=== PATIENT | male | born 1945 | race Caucasian/White ===

== ENCOUNTER 2018-06-29 09:55 | Inpatient (IN) ==
[2018-06-29] MEDS ORDERED: FUROSEMIDE 100 MG/10 ML VIAL IV STA (10:26)
[2018-06-29] MEDS ORDERED: ONDANSETRON 4 MG/2 ML VIAL IV STA (10:26)
[2018-06-29] MEDS ORDERED: MORPHINE 4 MG/1 ML VIAL IV STA (10:26)
[2018-06-29] MEDS ORDERED: FUROSEMIDE 20 MG/2 ML VIAL ONE (10:36)
[2018-06-29] MEDS ORDERED: FUROSEMIDE 40 MG/4 ML VIAL ONE (10:36)
[2018-06-29 11:31] LABS: Basophils # 0.1 10*3/uL (0.0-0.2); Basophils % 0.5 % (0.0-0.8); Eosinophils % 0.4 % (0.00-10.9); Hematocrit 44.3 VOL% (42.0-52.0); Hemoglobin 14.4 GM/DL (14.0-18.0); Immature Granulocytes % 0.4 %; Immature Granulocytes Absolute 0.05 #; Lymphocytes # 0.9 10*3/uL (1.4-4.0); Lymphocytes % 8.4 % (21.2-54.2); Mean Corpuscular HGB Conc 32.5 GM/DL (32-36); Mean Corpuscular Hemoglobin 30 PG (27-34); Mean Corpuscular Volume 92.9 FL (87-102); Mean Platelet Volume 11.5 FL (9.6-12.0); Monocytes # 0.9 10*3/uL (0.11-0.8); Monocytes % 8.3 % (1.7-12.7); Neutrophils # 9.1 10*3/uL (1.4-7.4); Platelet Count 231 T/CUMM (130-400); Red Blood Count 4.77 MC/CUMM (3.8-5.5); Red Cell Distribution Width 15.4 % (9.3-17.3); White Blood Count 11.2 T/CUMM (4-12)
[2018-06-29 11:52] LABS: Albumin 3.5 G/DL (3.4-5.0); Bilirubin,Total 1.5 MG/DL (0.2-1.0); Calcium 9.9 MG/DL (8.5-10.1); Osmolality,Calculated 276.8 MOS/KG (273-304); Potassium 4.1 MMOL/L (3.5-5.1); Total Protein 7.3 G/DL (6.4-8.3)
[2018-06-29 11:54] LABS: INR 1.3; PT Patient Result 13.2 SECS
[2018-06-29] MEDS ORDERED: ALBUTEROL 2.5 MG/3 ML NEB RESP TX STA (12:27)
[2018-06-29] MEDS ORDERED: NITROGLYCERIN SL 0.4 MG TABLET SL PRN (16:20)
[2018-06-29] MEDS ORDERED: ONDANSETRON 4 MG/2 ML VIAL IV PRN (16:25)
[2018-06-29] MEDS ORDERED: ACETAMINOPHEN 325 MG TABLET PO PRN (16:25)
[2018-06-29] MEDS: FORMOTEROL 20 MCG/2 ML NEB RESP TX SCH (19:38)
[2018-06-29] MEDS ORDERED: FUROSEMIDE 40 MG TABLET PO SCH (21:00)
[2018-06-29] MEDS: MONTELUKAST 10 MG TABLET PO SCH (21:30)
[2018-06-29] MEDS: METOPROLOL TARTRATE 25 MG TABLET PO SCH (21:30)
[2018-06-29] MEDS: APIXABAN 5 MG TABLET PO SCH (21:30)
[2018-06-29] MEDS ORDERED: ACETAMINOPHEN/diphenhydrAMINE 500-25 MG TABLET PO ONE (21:46)
[2018-06-30] MEDS ORDERED: ALBUTEROL 2.5 MG/3 ML NEB RESP TX SCH (07:00)
[2018-06-30 07:05] LABS: Basophils # 0.1 10*3/uL (0.0-0.2); Basophils % 0.7 % (0.0-0.8); Eosinophils # 0.1 10*3/uL (0.0-0.87); Hematocrit 37.8 VOL% (42.0-52.0); Hemoglobin 12.3 GM/DL (14.0-18.0); Immature Granulocytes % 0.2 %; Immature Granulocytes Absolute 0.02 #; Lymphocytes # 1.2 10*3/uL (1.4-4.0); Lymphocytes % 13.3 % (21.2-54.2); Mean Corpuscular HGB Conc 32.5 GM/DL (32-36); Mean Corpuscular Hemoglobin 30 PG (27-34); Mean Corpuscular Volume 92.4 FL (87-102); Mean Platelet Volume 12.4 FL (9.6-12.0); Monocytes # 0.9 10*3/uL (0.11-0.8); Monocytes % 10.1 % (1.7-12.7); Neutrophils # 6.8 10*3/uL (1.4-7.4); Neutrophils % 74.7 % (38.7-73.9); Platelet Count 200 T/CUMM (130-400); Red Blood Count 4.09 MC/CUMM (3.8-5.5); Red Cell Distribution Width 15.4 % (9.3-17.3); White Blood Count 9.1 T/CUMM (4-12)
[2018-06-30 07:18] LABS: Osmolality,Calculated 278.7 MOS/KG (273-304); Potassium 3.1 MMOL/L (3.5-5.1)
[2018-06-30] MEDS: BUDESONIDE 0.5 MG/2 ML NEB RESP TX SCH (07:26)
[2018-06-30] MEDS: FORMOTEROL 20 MCG/2 ML NEB RESP TX SCH ×2 (07:26→19:00)
[2018-06-30] MEDS: METOPROLOL TARTRATE 25 MG TABLET PO SCH ×2 (08:33→20:10)
[2018-06-30] MEDS: PANTOPRAZOLE 40 MG TABLET PO SCH (08:35)
[2018-06-30] MEDS: APIXABAN 5 MG TABLET PO SCH ×2 (08:35→20:10)
[2018-06-30] MEDS: LOSARTAN 50 MG TABLET PO SCH (08:35)
[2018-06-30] MEDS: SPIRONOLACTONE 25 MG TABLET PO SCH (08:35)
[2018-06-30] MEDS: ASPIRIN EC 81 MG TABLET PO SCH (08:35)
[2018-06-30] MEDS: FUROSEMIDE 40 MG/4 ML VIAL IV SCH ×2 (08:36→15:25)
[2018-06-30] MEDS: POTASSIUM CHLORIDE 20 MEQ TABLET PO PRN ×4 (11:02→18:41)
[2018-06-30] MEDS ORDERED: AZITHROMYCIN 250 MG TABLET PO ONE (12:54)
[2018-06-30] MEDS ORDERED: ASPIRIN CHEW 81 MG TABLET PO ONE ×3 (13:53→13:55)
[2018-06-30] MEDS ORDERED: ASPIRIN 325 MG TABLET ONE (13:53)
[2018-06-30] MEDS ORDERED: METOPROLOL TARTRATE 5 MG/5 ML VIAL IV PRN (14:04)
[2018-06-30] MEDS ORDERED: BISACODYL 10 MG SUPP RECTAL ONE (14:21)
[2018-06-30] MEDS ORDERED: ALBUTEROL 2.5 MG/3 ML NEB RESP TX PRN (16:41)
[2018-06-30] MEDS ORDERED: traZODone 50 MG TABLET PO PRN (16:41)
[2018-06-30] MEDS: ALBUTEROL/IPRATROPIUM 3 ML NEB RESP TX SCH ×2 (18:52→18:54)
[2018-06-30] MEDS: MONTELUKAST 10 MG TABLET PO SCH (20:10)
[2018-06-30] MEDS: AMOXICILLIN/CLAV 875 MG TABLET PO SCH (20:10)
[2018-07-01 06:02] LABS: Basophils # 0.1 10*3/uL (0.0-0.2); Basophils % 0.7 % (0.0-0.8); Eosinophils # 0.1 10*3/uL (0.0-0.87); Eosinophils % 1.1 % (0.00-10.9); Hematocrit 42.1 VOL% (42.0-52.0); Hemoglobin 13.1 GM/DL (14.0-18.0); Immature Granulocytes % 0.3 %; Immature Granulocytes Absolute 0.03 #; Lymphocytes # 1.4 10*3/uL (1.4-4.0); Lymphocytes % 15.7 % (21.2-54.2); Mean Corpuscular HGB Conc 31.1 GM/DL (32-36); Mean Corpuscular Hemoglobin 30 PG (27-34); Mean Corpuscular Volume 96.6 FL (87-102); Mean Platelet Volume 12.2 FL (9.6-12.0); Monocytes # 1.1 10*3/uL (0.11-0.8); Monocytes % 12.1 % (1.7-12.7); Neutrophils # 6.2 10*3/uL (1.4-7.4); Neutrophils % 70.1 % (38.7-73.9); Platelet Count 196 T/CUMM (130-400); Red Blood Count 4.36 MC/CUMM (3.8-5.5); Red Cell Distribution Width 15.4 % (9.3-17.3); White Blood Count 8.9 T/CUMM (4-12)
[2018-07-01 06:26] LABS: Calcium 9.1 MG/DL (8.5-10.1); Osmolality,Calculated 280.5 MOS/KG (273-304); Potassium 4.4 MMOL/L (3.5-5.1)
[2018-07-01] MEDS: ALBUTEROL/IPRATROPIUM 3 ML NEB RESP TX SCH ×3 (07:57→13:50)
[2018-07-01] MEDS: BUDESONIDE 0.5 MG/2 ML NEB RESP TX SCH (07:57)
[2018-07-01] MEDS: FORMOTEROL 20 MCG/2 ML NEB RESP TX SCH (08:07)
[2018-07-01] MEDS: SPIRONOLACTONE 25 MG TABLET PO SCH (08:50)
[2018-07-01] MEDS: AMOXICILLIN/CLAV 875 MG TABLET PO SCH (08:50)
[2018-07-01] MEDS: ASPIRIN EC 81 MG TABLET PO SCH (08:52)
[2018-07-01] MEDS: PANTOPRAZOLE 40 MG TABLET PO SCH (08:57)
[2018-07-01] MEDS: LOSARTAN 50 MG TABLET PO SCH (08:57)
[2018-07-01] MEDS: APIXABAN 5 MG TABLET PO SCH (08:58)
[2018-07-01] MEDS: METOPROLOL TARTRATE 25 MG TABLET PO SCH (08:58)
[2018-07-01] MEDS ORDERED: FUROSEMIDE 40 MG TABLET PO SCH (09:00)
[2018-07-01] MEDS ORDERED: AZITHROMYCIN 250 MG TABLET PO SCH (09:00)
[2018-07-01 13:15] VITALS: BP 110/72
== END 2018-07-01 15:20 | disposition home or self-care (01) | DRG 292 ==
LOC: EDBD → EDUNIT# → N.ED 09:55 → N.EDINP 16:25 → N.2E 17:13
PROVIDERS: ADMIT Internal Medicine; ATTEND Internal Medicine

== ENCOUNTER 2018-08-10 09:47 | Inpatient (IN) ==
[2018-08-10] MEDS ORDERED: ONDANSETRON 4 MG/2 ML VIAL IV STA (10:20)
[2018-08-10] MEDS ORDERED: SODIUM CHLORIDE 0.9% 1,000 ML IV STA (10:20)
[2018-08-10 10:40] LABS: Basophils # 0.1 10*3/uL (0.0-0.2); Basophils % 0.7 % (0.0-0.8); Eosinophils % 0.2 % (0.00-10.9); Hematocrit 41.4 VOL% (42.0-52.0); Hemoglobin 13.3 GM/DL (14.0-18.0); Immature Granulocytes % 0.2 %; Immature Granulocytes Absolute 0.02 #; Lymphocytes # 0.9 10*3/uL (1.4-4.0); Lymphocytes % 10.6 % (21.2-54.2); Mean Corpuscular HGB Conc 32.1 GM/DL (32-36); Mean Corpuscular Hemoglobin 29 PG (27-34); Mean Corpuscular Volume 88.7 FL (87-102); Mean Platelet Volume 10.5 FL (9.6-12.0); Monocytes # 0.9 10*3/uL (0.11-0.8); Monocytes % 10.3 % (1.7-12.7); Neutrophils # 6.9 10*3/uL (1.4-7.4); Platelet Count 328 T/CUMM (130-400); Red Blood Count 4.67 MC/CUMM (3.8-5.5); Red Cell Distribution Width 15.4 % (9.3-17.3); White Blood Count 8.9 T/CUMM (4-12)
[2018-08-10 10:54] LABS: Alanine Aminotransferase 79 U/L (16-61); Albumin 3.2 G/DL (3.4-5.0); Alkaline Phosphatase 94 U/L (45-117); Aspartate Amino Transferase 129 U/L (0-37); Blood Urea Nitrogen 37 MG/DL (7-18); Calcium 9.2 MG/DL (8.5-10.1); Glucose 93 MG/DL (74-106); Sodium 137 MMOL/L (136-145); Total Protein 6.2 G/DL (6.4-8.3)
[2018-08-10 10:55] LABS: Osmolality,Calculated 281.8 MOS/KG (273-304); Potassium 3.6 MMOL/L (3.5-5.1)
[2018-08-10 10:56] LABS: Lactic Acid 2.1 MMOL/L (0.4-2.0)
[2018-08-10 11:20] LABS: Apearance,Urine Slightly Hazy (Clear); Bacteria,Urine Occasional /HPF (Few); Bilirubin,Urine Negative (Negative); Blood, Urine Small mg/dL (Negative); Glucose,Urine (UA) Negative (Negative); Granular Casts,Urine 1 /LPF (0-1); Hyaline Casts,Urine 54 /LPF (0-3); Ketones,Urine 5 mg/dL (Negative); Mucus,Urine Occasional /LPF (Occasional); Nitrite,Urine Negative (Negative); Protein,Urine 100 MG/DL; RBC,Urine 9 /HPF (0-4); Squamous Epithelial Cell,Urine Occasional /HPF (0-10); Urine Color Amber (Yellow); Urine Specific Gravity 1.019 (1.001-1.035); WBC,Urine 4 /HPF (0-6)
[2018-08-10] MEDS ORDERED: ACETAMINOPHEN 325 MG TABLET PO PRN (13:50)
[2018-08-10] MEDS: DOBUTamine 500 MG/250 ML PREMIX IV SCH (15:26)
[2018-08-10] MEDS ORDERED: ALBUTEROL 2.5 MG/3 ML NEB RESP TX STA (15:28)
[2018-08-10 15:47] LABS: Bilirubin,Total 1.2 MG/DL (0.2-1.0); Calcium 8.3 MG/DL (8.5-10.1); Osmolality,Calculated 281.7 MOS/KG (273-304); Potassium 3.3 MMOL/L (3.5-5.1); Total Protein 6.4 G/DL (6.4-8.3)
[2018-08-10] MEDS: POTASSIUM CHLORIDE 20 MEQ TABLET PO PRN ×3 (18:41→22:56)
[2018-08-10] MEDS: ALBUTEROL 2.5 MG/3 ML NEB RESP TX PRN (19:28)
[2018-08-10] MEDS ORDERED: AMIODARONE INJ 150 MG in DEXTROSE 5% 100 ML IV ONE (19:28)
[2018-08-10] MEDS ORDERED: AMIODARONE INJ 450 MG in DEXTROSE 5% 241 ML IV SCH (19:30)
[2018-08-10] MEDS: ENOXAPARIN 30 MG/0.3 ML SYRINGE SUBCUT SCH (20:23)
[2018-08-11] MEDS: ALBUTEROL 2.5 MG/3 ML NEB RESP TX PRN ×2 (01:48→08:04)
[2018-08-11] MEDS: ONDANSETRON 4 MG/2 ML VIAL IV PRN ×2 (01:54→11:02)
[2018-08-11] MEDS: AMIODARONE INJ 450 MG in DEXTROSE 5% 241 ML IV SCH ×2 (01:55→17:00)
[2018-08-11 02:46] LABS: Basophils # 0.1 10*3/uL (0.0-0.2); Basophils % 0.6 % (0.0-0.8); Eosinophils # 0.1 10*3/uL (0.0-0.87); Eosinophils % 0.5 % (0.00-10.9); Hematocrit 37.2 VOL% (42.0-52.0); Immature Granulocytes % 0.3 %; Immature Granulocytes Absolute 0.03 #; Lymphocytes # 1.2 10*3/uL (1.4-4.0); Mean Corpuscular HGB Conc 32.3 GM/DL (32-36); Mean Corpuscular Hemoglobin 28 PG (27-34); Mean Corpuscular Volume 87.1 FL (87-102); Monocytes # 1.1 10*3/uL (0.11-0.8); Monocytes % 11.2 % (1.7-12.7); Neutrophils # 7.3 10*3/uL (1.4-7.4); Neutrophils % 75.4 % (38.7-73.9); Platelet Count 306 T/CUMM (130-400); Red Blood Count 4.27 MC/CUMM (3.8-5.5); Red Cell Distribution Width 15.7 % (9.3-17.3); White Blood Count 9.6 T/CUMM (4-12)
[2018-08-11 03:23] LABS: Calcium 8.6 MG/DL (8.5-10.1); Osmolality,Calculated 281.8 MOS/KG (273-304); Potassium 3.5 MMOL/L (3.5-5.1)
[2018-08-11] MEDS: POTASSIUM CHLORIDE RIDER 10 MEQ in PREMIX 1 EACH IV PRN ×3 (06:42→08:42)
[2018-08-11 09:12] LABS: ABG Base Excess -0.4 MMOL/L (-2.5-2.5); ABG Oxygen Saturation 96.2 % (95-100); ABG PCO2 43.6 MM HG (35-48); ABG PH 7.368 (7.35-7.45); ABG PO2 85.8 MM HG (80-95); ABG TCO2 22.4 MMOL/L (23-27)
[2018-08-11] MEDS: ASPIRIN EC 81 MG TABLET PO SCH (10:33)
[2018-08-11] MEDS: METOPROLOL TARTRATE 25 MG TABLET PO SCH ×2 (10:33→20:14)
[2018-08-11 13:10] LABS: Apearance,Urine CLEAR (Clear); Bilirubin,Urine Negative (Negative); Blood, Urine Large mg/dL (Negative); Glucose,Urine (UA) Negative (Negative); Hyaline Casts,Urine 3 /LPF (0-3); Ketones,Urine 5 mg/dL (Negative); Mucus,Urine Occasional /LPF (Occasional); Nitrite,Urine Negative (Negative); Protein,Urine 30 MG/DL; RBC,Urine 166 /HPF (0-4); Squamous Epithelial Cell,Urine Occasional /HPF (0-10); Urine Color Yellow (Yellow); Urine Specific Gravity 1.019 (1.001-1.035); WBC,Urine 15 /HPF (0-6)
[2018-08-11] MEDS: ALBUTEROL/IPRATROPIUM 3 ML NEB RESP TX SCH ×3 (14:00→18:20)
[2018-08-11] MEDS: BUDESONIDE 0.5 MG/2 ML NEB RESP TX SCH ×2 (14:00→18:20)
[2018-08-11] MEDS ORDERED: ALBUTEROL/IPRATROPIUM 3 ML NEB RESP TX PRN (14:43)
[2018-08-11] MEDS: DOBUTamine 500 MG/250 ML PREMIX IV SCH ×2 (16:25→21:14)
[2018-08-11] MEDS: THEOPHYLLINE ER (24 HR) 200 MG CAPSULE PO SCH (18:25)
[2018-08-11] MEDS: MONTELUKAST 10 MG TABLET PO SCH (20:14)
[2018-08-11] MEDS: ENOXAPARIN 30 MG/0.3 ML SYRINGE SUBCUT SCH (20:14)
[2018-08-11 20:46] LABS: ABG Base Excess -1.9 MMOL/L (-2.5-2.5); ABG HCO3 22.8 MMOL/L (20-26); ABG Oxygen Saturation 94.8 % (95-100); ABG PCO2 41.2 MM HG (35-48); ABG PH 7.363 (7.35-7.45); ABG PO2 77.4 MM HG (80-95); ABG TCO2 20.5 MMOL/L (23-27); Allen Test Positive
[2018-08-11] MEDS ORDERED: AMIODARONE INJ 150 MG in DEXTROSE 5% 100 ML IV ONE (21:03)
[2018-08-11] MEDS ORDERED: AMIODARONE 150 MG/3 ML VIAL ONE (21:04)
[2018-08-11] MEDS ORDERED: AMIODARONE 450 MG/9 ML VIAL IV ONE (21:05)
[2018-08-11] MEDS ORDERED: AMIODARONE INJ 450 MG in DEXTROSE 5% 241 ML IV SCH (21:30)
[2018-08-11] MEDS ORDERED: SODIUM CHLORIDE 0.9% 500 ML IV ONE (21:40)
[2018-08-11 22:43] LABS: ABG Base Excess -5.8 MMOL/L (-2.5-2.5); ABG HCO3 21.6 MMOL/L (20-26); ABG Oxygen Saturation 92.8 % (95-100); ABG PCO2 49.7 MM HG (35-48); ABG PH 7.255 (7.35-7.45); ABG PO2 80.9 MM HG (80-95); ABG TCO2 23.1 MMOL/L (23-27)
[2018-08-11] MEDS ORDERED: LORazepam 2 MG/1 ML VIAL IV ONE (23:05)
[2018-08-11 23:07] LABS: Calcium 8.4 MG/DL (8.5-10.1); Osmolality,Calculated 280.2 MOS/KG (273-304); Potassium 4.4 MMOL/L (3.5-5.1)
[2018-08-11] MEDS ORDERED: MORPHINE 4 MG/1 ML VIAL IV PRN (23:11)
[2018-08-11] MEDS: PHENYLEPHRINE DRIP 40 MG/250 ML PREMIX IV PRN (23:18)
[2018-08-12] MEDS ORDERED: SODIUM BICARBONATE 50 MEQ/50 ML SYRINGE IV ONE (00:56)
[2018-08-12] MEDS ORDERED: DOPamine 800 MG/250 ML PREMIX IV PRN (00:56)
[2018-08-12] MEDS ORDERED: SODIUM CHLORIDE 0.9% 500 ML IV ONE (00:56)
[2018-08-12] MEDS: ALBUTEROL/IPRATROPIUM 3 ML NEB RESP TX SCH ×4 (01:15→19:02)
[2018-08-12 01:20] LABS: ABG Base Excess 1.8 MMOL/L (-2.5-2.5); ABG HCO3 28.7 MMOL/L (20-26); ABG Oxygen Saturation 97.8 % (95-100); ABG PCO2 55.1 MM HG (35-48); ABG PH 7.334 (7.35-7.45); ABG TCO2 30.4 MMOL/L (23-27)
[2018-08-12] MEDS: PHENYLEPHRINE DRIP 40 MG/250 ML PREMIX IV PRN ×9 (02:16→20:46)
[2018-08-12] MEDS: AMIODARONE INJ 450 MG in DEXTROSE 5% 241 ML IV SCH ×2 (03:00→19:31)
[2018-08-12] MEDS ORDERED: LORazepam 2 MG/1 ML VIAL IV ONE (03:21)
[2018-08-12] MEDS ORDERED: NOREPINEPHRINE 4 MG/4 ML VIAL IV ONE (03:43)
[2018-08-12 04:06] LABS: Albumin 2.9 G/DL (3.4-5.0); Calcium 8.4 MG/DL (8.5-10.1); Osmolality,Calculated 280.8 MOS/KG (273-304); Potassium 4.3 MMOL/L (3.5-5.1)
[2018-08-12] MEDS: NOREPINEPHRINE 8 MG in SODIUM CHLORIDE 0.9% 242 ML IV PRN ×2 (04:08→10:10)
[2018-08-12] MEDS: BUDESONIDE 0.5 MG/2 ML NEB RESP TX SCH ×2 (07:23→19:02)
[2018-08-12] MEDS ORDERED: FUROSEMIDE 40 MG/4 ML VIAL IV ONE (07:56)
[2018-08-12] MEDS ORDERED: FUROSEMIDE 40 MG/4 ML VIAL ONE (07:58)
[2018-08-12 08:27] LABS: Basophils % 0.1 % (0.0-0.8); Hematocrit 45.1 VOL% (42.0-52.0); Hemoglobin 13.9 GM/DL (14.0-18.0); Immature Granulocytes % 0.4 %; Immature Granulocytes Absolute 0.06 #; Lymphocytes # 0.3 10*3/uL (1.4-4.0); Lymphocytes % 2.2 % (21.2-54.2); Mean Corpuscular HGB Conc 30.8 GM/DL (32-36); Mean Corpuscular Hemoglobin 28 PG (27-34); Mean Corpuscular Volume 90.9 FL (87-102); Mean Platelet Volume 11.7 FL (9.6-12.0); Monocytes # 1.2 10*3/uL (0.11-0.8); Monocytes % 7.9 % (1.7-12.7); Neutrophils # 13.2 10*3/uL (1.4-7.4); Neutrophils % 89.4 % (38.7-73.9); Platelet Count 277 T/CUMM (130-400); Red Blood Count 4.96 MC/CUMM (3.8-5.5); Red Cell Distribution Width 15.8 % (9.3-17.3); White Blood Count 14.8 T/CUMM (4-12)
[2018-08-12 08:49] LABS: Eosinophils 1 % (0-10); Hypochromasia 1+; Lymphocytes 2 % (20-55); Nucleated Red Blood Cells 1 (0-5); Platelet Estimate Adequate; Segmented Neutrophils 88 % (50-85); Total Cells Counted 100
[2018-08-12] MEDS: METOPROLOL TARTRATE 25 MG TABLET PO SCH ×2 (09:00→20:41)
[2018-08-12] MEDS: ASPIRIN EC 81 MG TABLET PO SCH (09:00)
[2018-08-12] MEDS ORDERED: SUCCINYLCHOLINE 200 MG/10 ML VIAL ONE (09:15)
[2018-08-12] MEDS ORDERED: ETOMIDATE 20 MG/10 ML VIAL IV ONE ×2 (09:15→09:31)
[2018-08-12] MEDS ORDERED: SUCCINYLCHOLINE 200 MG/10 ML VIAL IV ONE (09:29)
[2018-08-12] MEDS ORDERED: PROPOFOL 1,000 MG/100 ML BOTTLE IV ONE (09:55)
[2018-08-12] MEDS: PIPERACILLIN/TAZOBACTAM 3,375 MG in SODIUM CHLORIDE 0.9% 100 ML IV SCH ×2 (10:14→17:00)
[2018-08-12] MEDS: PROPOFOL 1,000 MG/100 ML BOTTLE IV SCH ×2 (10:15→21:39)
[2018-08-12 10:20] LABS: ABG Base Excess -5.7 MMOL/L (-2.5-2.5); ABG HCO3 19.7 MMOL/L (20-26); ABG Oxygen Saturation 93.2 % (95-100); ABG PCO2 53.9 MM HG (35-48); ABG PH 7.233 (7.35-7.45); ABG PO2 78.1 MM HG (80-95); ABG TCO2 20.3 MMOL/L (23-27)
[2018-08-12 11:20] LABS: ABG HCO3 21.1 MMOL/L (20-26); ABG Oxygen Saturation 99.7 % (95-100); ABG PCO2 45.1 MM HG (35-48); ABG PH 7.306 (7.35-7.45); ABG TCO2 19.9 MMOL/L (23-27)
[2018-08-12] MEDS: VANCOMYCIN INJ 1,000 MG in SODIUM CHLORIDE 0.9% 250 ML IV SCH (13:10)
[2018-08-12] MEDS: NOREPINEPHRINE 16 MG in SODIUM CHLORIDE 0.9% 234 ML IV PRN ×2 (15:33→20:15)
[2018-08-12] MEDS ORDERED: METOPROLOL TARTRATE 5 MG/5 ML VIAL IV ONE (15:48)
[2018-08-12] MEDS: THEOPHYLLINE ER (24 HR) 200 MG CAPSULE PO SCH (17:00)
[2018-08-12] MEDS: DOBUTamine 500 MG/250 ML PREMIX IV SCH (18:31)
[2018-08-12] MEDS: MONTELUKAST 10 MG TABLET PO SCH (20:40)
[2018-08-12] MEDS: ENOXAPARIN 30 MG/0.3 ML SYRINGE SUBCUT SCH (20:40)
[2018-08-12] MEDS: PHENYLEPHRINE INJ 160 MG in SODIUM CHLORIDE 0.9% 234 ML IV PRN (22:42)
[2018-08-13] MEDS: ALBUTEROL/IPRATROPIUM 3 ML NEB RESP TX SCH ×4 (00:42→20:28)
[2018-08-13] MEDS: PIPERACILLIN/TAZOBACTAM 3,375 MG in SODIUM CHLORIDE 0.9% 100 ML IV SCH ×3 (01:39→17:18)
[2018-08-13] MEDS: AMIODARONE INJ 450 MG in DEXTROSE 5% 241 ML IV SCH ×2 (01:41→17:10)
[2018-08-13 02:57] LABS: ABG Base Excess -4.5 MMOL/L (-2.5-2.5); ABG HCO3 20.7 MMOL/L (20-26); ABG Oxygen Saturation 96.8 % (95-100); ABG PCO2 39.6 MM HG (35-48); ABG PH 7.335 (7.35-7.45); ABG PO2 95.3 MM HG (80-95); ABG TCO2 18.5 MMOL/L (23-27); Allen Test Positive; Pt O2 Delivery Device Ventilator
[2018-08-13] MEDS: NOREPINEPHRINE 16 MG in SODIUM CHLORIDE 0.9% 234 ML IV PRN ×4 (04:37→22:00)
[2018-08-13 04:49] LABS: Basophils % 0.2 % (0.0-0.8); Eosinophils % 0.1 % (0.00-10.9); Hematocrit 41.6 VOL% (42.0-52.0); Hemoglobin 13.1 GM/DL (14.0-18.0); Immature Granulocytes % 0.6 %; Immature Granulocytes Absolute 0.08 #; Lymphocytes # 0.6 10*3/uL (1.4-4.0); Lymphocytes % 4.2 % (21.2-54.2); Mean Corpuscular HGB Conc 31.5 GM/DL (32-36); Mean Corpuscular Hemoglobin 29 PG (27-34); Mean Corpuscular Volume 90.6 FL (87-102); Mean Platelet Volume 10.7 FL (9.6-12.0); Monocytes # 1.5 10*3/uL (0.11-0.8); Monocytes % 10.7 % (1.7-12.7); Neutrophils % 84.2 % (38.7-73.9); Platelet Count 266 T/CUMM (130-400); Red Blood Count 4.59 MC/CUMM (3.8-5.5); Red Cell Distribution Width 15.9 % (9.3-17.3); White Blood Count 14.3 T/CUMM (4-12)
[2018-08-13 05:10] LABS: Burr Cells Slight; Hypochromasia 1+; Lymphocytes 8 % (20-55); Ovalocytes Slight; Platelet Estimate Adequate; Segmented Neutrophils 85 % (50-85); Total Cells Counted 100
[2018-08-13 05:14] LABS: Calcium 7.8 MG/DL (8.5-10.1); Osmolality,Calculated 285.5 MOS/KG (273-304); Potassium 4.1 MMOL/L (3.5-5.1)
[2018-08-13] MEDS: PHENYLEPHRINE DRIP 40 MG/250 ML PREMIX IV PRN ×2 (05:40→08:43)
[2018-08-13] MEDS: NOREPINEPHRINE 8 MG in SODIUM CHLORIDE 0.9% 242 ML IV PRN (05:40)
[2018-08-13] MEDS: PROPOFOL 1,000 MG/100 ML BOTTLE IV SCH ×2 (06:24→15:24)
[2018-08-13] MEDS: BUDESONIDE 0.5 MG/2 ML NEB RESP TX SCH ×2 (07:13→20:28)
[2018-08-13] MEDS: PHENYLEPHRINE INJ 160 MG in SODIUM CHLORIDE 0.9% 234 ML IV PRN ×2 (09:24→16:17)
[2018-08-13] MEDS: ASPIRIN CHEW 81 MG TABLET PO SCH (09:40)
[2018-08-13] MEDS: METOPROLOL TARTRATE 25 MG TABLET PO SCH ×2 (09:41→21:21)
[2018-08-13] MEDS: THEOPHYLLINE 5.33 MG/ML 30 ML/BOTTLE PER TUBE SCH ×3 (09:47→21:21)
[2018-08-13] MEDS: VANCOMYCIN INJ 1,000 MG in SODIUM CHLORIDE 0.9% 250 ML IV SCH (13:56)
[2018-08-13] MEDS: DOBUTamine 500 MG/250 ML PREMIX IV SCH (17:42)
[2018-08-13] MEDS: MONTELUKAST 10 MG TABLET PO SCH (21:21)
[2018-08-13] MEDS: ENOXAPARIN 30 MG/0.3 ML SYRINGE SUBCUT SCH (21:21)
[2018-08-14] MEDS: PIPERACILLIN/TAZOBACTAM 3,375 MG in SODIUM CHLORIDE 0.9% 100 ML IV SCH ×3 (00:23→17:34)
[2018-08-14] MEDS: PROPOFOL 1,000 MG/100 ML BOTTLE IV SCH ×3 (00:24→18:53)
[2018-08-14] MEDS: PHENYLEPHRINE INJ 160 MG in SODIUM CHLORIDE 0.9% 234 ML IV PRN ×2 (00:50→14:34)
[2018-08-14] MEDS: ALBUTEROL/IPRATROPIUM 3 ML NEB RESP TX SCH ×4 (02:18→18:54)
[2018-08-14] MEDS: THEOPHYLLINE 5.33 MG/ML 30 ML/BOTTLE PER TUBE SCH ×4 (03:34→22:03)
[2018-08-14 04:44] LABS: Basophils % 0.1 % (0.0-0.8); Hematocrit 44.2 VOL% (42.0-52.0); Immature Granulocytes % 0.5 %; Immature Granulocytes Absolute 0.07 #; Lymphocytes # 0.4 10*3/uL (1.4-4.0); Lymphocytes % 2.9 % (21.2-54.2); Mean Corpuscular HGB Conc 31.7 GM/DL (32-36); Mean Corpuscular Hemoglobin 28 PG (27-34); Mean Corpuscular Volume 88.8 FL (87-102); Mean Platelet Volume 11.2 FL (9.6-12.0); Monocytes # 1.2 10*3/uL (0.11-0.8); Monocytes % 8.8 % (1.7-12.7); Neutrophils # 11.9 10*3/uL (1.4-7.4); Neutrophils % 87.7 % (38.7-73.9); Platelet Count 231 T/CUMM (130-400); Red Blood Count 4.98 MC/CUMM (3.8-5.5); Red Cell Distribution Width 16.2 % (9.3-17.3); White Blood Count 13.6 T/CUMM (4-12)
[2018-08-14 05:10] LABS: Burr Cells Slight; Giant Platelets Few; Hypochromasia 1+; Lymphocytes 4 % (20-55); Ovalocytes Slight; Platelet Estimate Adequate; Segmented Neutrophils 90 % (50-85); Total Cells Counted 100
[2018-08-14 05:20] LABS: Calcium 8.1 MG/DL (8.5-10.1); Osmolality,Calculated 287.3 MOS/KG (273-304); Potassium 4.4 MMOL/L (3.5-5.1)
[2018-08-14] MEDS: DOBUTamine 500 MG/250 ML PREMIX IV SCH (06:05)
[2018-08-14] MEDS: AMIODARONE INJ 450 MG in DEXTROSE 5% 241 ML IV SCH ×4 (06:05→23:49)
[2018-08-14] MEDS: NOREPINEPHRINE 16 MG in SODIUM CHLORIDE 0.9% 234 ML IV PRN ×3 (06:07→18:23)
[2018-08-14] MEDS: BUDESONIDE 0.5 MG/2 ML NEB RESP TX SCH ×2 (07:20→18:54)
[2018-08-14] MEDS: ENOXAPARIN 30 MG/0.3 ML SYRINGE SUBCUT SCH ×2 (07:50→22:03)
[2018-08-14 08:09] LABS: ABG Base Excess -7.3 MMOL/L (-2.5-2.5); ABG HCO3 18.3 MMOL/L (20-26); ABG Oxygen Saturation 98.6 % (95-100); ABG PCO2 37.5 MM HG (35-48); ABG PH 7.307 (7.35-7.45); ABG PO2 142.1 MM HG (80-95); ABG TCO2 19.5 MMOL/L (23-27); Allen Test Positive; Pt O2 Delivery Device Ventilator
[2018-08-14] MEDS: fentaNYL INJ 1,250 MCG in SODIUM CHLORIDE 0.9% 225 ML IV PRN (09:45)
[2018-08-14] MEDS: METOPROLOL TARTRATE 25 MG TABLET PO SCH ×2 (10:34→22:03)
[2018-08-14] MEDS: ASPIRIN CHEW 81 MG TABLET PO SCH (10:37)
[2018-08-14] MEDS: MONTELUKAST 10 MG TABLET PO SCH (22:03)
[2018-08-15] MEDS: PIPERACILLIN/TAZOBACTAM 3,375 MG in SODIUM CHLORIDE 0.9% 100 ML IV SCH ×3 (00:52→17:00)
[2018-08-15] MEDS: ALBUTEROL/IPRATROPIUM 3 ML NEB RESP TX SCH ×3 (00:56→12:32)
[2018-08-15] MEDS: NOREPINEPHRINE 16 MG in SODIUM CHLORIDE 0.9% 234 ML IV PRN ×2 (01:00→07:55)
[2018-08-15] MEDS: THEOPHYLLINE 5.33 MG/ML 30 ML/BOTTLE PER TUBE SCH ×3 (03:01→15:00)
[2018-08-15] MEDS: PHENYLEPHRINE INJ 160 MG in SODIUM CHLORIDE 0.9% 234 ML IV PRN (03:50)
[2018-08-15 03:51] LABS: Pt O2 Delivery Device Ventilator
[2018-08-15 03:53] LABS: ABG Base Excess -7.5 MMOL/L (-2.5-2.5); ABG HCO3 18.4 MMOL/L (20-26); ABG Oxygen Saturation 97.7 % (95-100); ABG PCO2 36.4 MM HG (35-48); ABG PH 7.307 (7.35-7.45); ABG TCO2 15.8 MMOL/L (23-27)
[2018-08-15 05:23] LABS: Calcium 8.8 MG/DL (8.5-10.1); Osmolality,Calculated 289.4 MOS/KG (273-304); Potassium 4.6 MMOL/L (3.5-5.1)
[2018-08-15] MEDS ORDERED: LIDOCAINE 1% 20 ML VIAL MISC INJ ONE (06:38)
[2018-08-15] MEDS ORDERED: MIDAZOLAM 2 MG/2 ML VIAL IV ONE (06:38)
[2018-08-15] MEDS ORDERED: LIDOCAINE 2% 20 ML VIAL RESP TX ONE (06:38)
[2018-08-15] MEDS: BUDESONIDE 0.5 MG/2 ML NEB RESP TX SCH (06:54)
[2018-08-15] MEDS: AMIODARONE INJ 450 MG in DEXTROSE 5% 241 ML IV SCH (07:00)
[2018-08-15] MEDS ORDERED: FUROSEMIDE INJ 200 MG in SODIUM CHLORIDE 0.9% 80 ML IV SCH (08:00)
[2018-08-15] MEDS: ASPIRIN CHEW 81 MG TABLET PO SCH (08:30)
[2018-08-15] MEDS ORDERED: AMIODARONE 200 MG TABLET NG SCH (09:00)
[2018-08-15] MEDS: PROPOFOL 1,000 MG/100 ML BOTTLE IV SCH (11:00)
[2018-08-15] MEDS: fentaNYL INJ 1,250 MCG in SODIUM CHLORIDE 0.9% 225 ML IV PRN (15:05)
[2018-08-15 17:05] VITALS: BP 40/23
== END 2018-08-15 15:50 | disposition expired | DRG 291 ==
LOC: N.ED 09:47 → N.EDINP 13:50 → SUATTDRO 13:50 → N.TELES 16:27 → N.ICU 17:11
PROVIDERS: ADMIT Internal Medicine Geriatric Medicine; ATTEND Internal Medicine